=== PATIENT | female | born 1940 | race Caucasian/White ===

== ENCOUNTER → 2017-11-16 12:14 | Outpatient (CLI) | payer MEDICARE, OTHER ==
[2015-03-06 12:38] VITALS: BMI 34.8
[~2017-11-16 12:14] MED LIST: ASPIRIN81 MG PO; BENICAR20 MG PO; BUMETANIDE0.5 MG PO; DEXILANT60 MG PO; KLOR-CON 1010 MEQ PO; METOPROLOL TAR100 MG PO; PLAVIX75 MG PO; TUMS500 MG; VITAMIN D31000 UNIT PO; XANAX0.25 MG PO
== END | disposition home or self-care (01) ==
LOC: D.CT 12:14
DX: S09.90XA Unspecified injury of head, initial encounter (principal); X58.XXXA Exposure to other specified factors, initial encounter; Y93.89 Activity, other specified; Y92.89 Other specified places as the place of occurrence of the external cause; H53.9 Unspecified visual disturbance

== ENCOUNTER → 2019-04-18 08:32 | Outpatient (CLI) | payer MEDICARE, OTHER ==
[2015-03-06 12:38] VITALS: BMI 34.8
--- NOTE | ~2019-04-18 | ST ---
PATIENT:ZORAIDA DONOVAN MEDICAL RECORD: [id number] SEX: F LOCATION:[facility] ORDER #: ADMISSION DATE: 04/18/19 AGE OF PATIENT: 78 REFERRING PHYSICIAN: INTERPRETING PHYSICIAN: EILEEN JARVIS MD DATE OF SERVICE: 04/18/2019 INDICATIONS: Angina and coronary artery disease, shortness of breath, hypertension. She was exercised on standard Lexiscan protocol with 33 mCi of sestamibi injected at peak stress, 11 mCi used previously for rest images. FINDINGS: Gated SPECT reveals a preserved ejection fraction at 65% with good wall motion and thickening and brightening throughout all segments. SPECT IMAGING: Cardiolite was used as myocardial perfusion agent. There is reversibility anteriorly apically and laterally, this includes the basal, mid, apical, and anterior segments, the apex itself and apical lateral, mid lateral, and basal lateral segments. The degree of reversibility is moderate. The amount of myocardial involved is very large. OVERALL IMPRESSION: This is a high-risk abnormal nuclear stress test, large area of reversible ischemia anteriorly, apically, and laterally suggestive of multivessel coronary artery disease. We would proceed with coronary angiography as a followup study. TRANSINT:[id number] Voice Confirmation ID: [id number] DOCUMENT ID: [id number] EILEEN JARVIS MD CC: SAMUEL GUNTER [id number] DICTATION DATE: 04/18/19 1320 SCIENCE ANALYST: 04/19/19 0300 DEP CLI 04/18/19 [facility] [address] [place] [address]
== END | disposition home or self-care (01) ==
LOC: D.HCCARDIO 08:32
PROVIDERS: ATTEND Internal Medicine Interventional Cardiology
DX: I25.10 Atherosclerotic heart disease of native coronary artery without angina pectoris (principal)

== ENCOUNTER 2019-04-28 07:49 | Outpatient (CLI) | payer MEDICARE, OTHER ==
[~2019-04-28] VITALS: Ht 157.5 cm; Wt 93.2 kg
--- NOTE | ~2019-04-28 | HEMODYNAMI ---
PATIENT:ZORAIDA DONOVAN MEDICAL RECORD: [id number] : 44 LOCATION:[facility] ADMISSION DATE: 04/28/19 Generatedon:04/28/201912:09 Patient name: ZORAIDA DONOVAN Patient #: [id number] SSN: : 1940 Date of study: 04/28/2019 Page: Of Hemodynamic Procedure Report Patient Data Patient Demographics Procedure consent was obtained First Name: ZORAIDA Gender: Female Last Name: ZION : 1940 Middle Initial: SARAH Age: 78 year(s) Patient #: [id number] Race: Unknown Additional ID: [id number] Contact details Address: [place] [place] [address] State: [place] City: [place] Zip code: [address] Past Medical History Allergies Allergen Reaction Date Comments Reported Other allergy 03/03/2015 Codeine, Cordisone, Darvon, Dilaudid, Lincocin, Demerol, Aleve, Talwin, Ultram, Other allergy 04/28/2019 aleve,codeine, cortisone, darvon,demerol, dilaudid, diltiazem, imidapril, lincocin, phenacetin, talwin, ultram. Admission Admission Data Admission Date: 04/28/2019 Admission Time: 7:49 Weight (lbs.): 205.03 Weight (kg.): 93 Lab Results Lab Result Date: 04/28/2019 Lab Result Time: 0:00 Biochemistry Name Units Result Min Max BUN mg/dl 15 --(--*-)-- 7 18 Creatinine mg/dl 0.8 --(-*--)-- 0.6 1.3 CBC Name Units Result Min Max Hematocrit % 40.1 -*(----)-- 42 54 Hemoglobin g/dl 13.5 --(*---)-- 13.5 17.5 Procedure Procedure Types Cath Procedure Diagnostic Procedure LHC LHC w/Coronaries FFR/IVUS FFR Initial Procedure Description Procedure Date Procedure Date: 04/28/2019 Procedure Start Time: 11:58 Procedure End Time: 12:08 Procedure Staff Name Function Cristofer Knight MD Performing Physician Giovanni Salazar RT Monitor Irina Weiner RT Scrub Carina Vazquez RN Nurse Long Patel RN Argon Tester Procedure Data Cath Procedure Fluoroscopy Diagnostic fluoroscopy Total fluoroscopy Time: 3 time: 3 min min Diagnostic fluoroscopy Total fluoroscopy dose: 397 dose: 397 mGy mGy Contrast Material Contrast Material Type Amount (ml) Isovue 300 49 Entry Location Entry Primary Successful Side Size Upsize Upsize Entry Closure Cartwright ccessful Closure Location (Fr) 1 (Fr) 2 (Fr) Remarks Device Remarks Radial Right 6 Fr Mechanical artery Short Compression Estimated blood loss: 10 ml Diagnostic catheters Device Type Used For End Catheter Placement DIAGNOSTIC [place] 110cm 5 Procedure Fr catheter ([id number]) Procedure Complications No complications Procedure Medications Medication Administration Route Dosage Zofran I.V. 4 mg 0.9% NaCl I.V. 100 ml/hr Oxygen etCO2 Nasal cannula 2 l/min Lidocaine 2% added to field 20 Heparin Flush Bag added to field 2 bags (1000units/500ml NS) Radial Cocktail added to field 1 syringe (Verapamil 2mg/Nitro 400mcg/Heparin 1500units) Versed I.V. 2 mg Fentanyl I.V. 50 mcg Versed I.V. 2 mg Fentanyl I.V. 50 mcg Hemodynamics Rest HGB: 13.5 (g/dl) Heart Rate: 87 (bpm) Snapshots Pre Cath Intra NCS Post Cath Vital Signs Time Heart Resp SPO2 etCO2 NIBP (mmHg) Rhythm Pain Sedation Rate (ipm) (%) (mmHg) Status Level (bpm) 11:50:42 88 14 98 37 160/91(106) NSR 0 (11) 10(A) , No pain 11:55:06 83 18 97 40.3 145/80(115) NSR 0 (11) 10(A) , No pain 11:59:18 84 17 99 35.9 123/77(97) NSR 0 (11) 10(A) , No pain 12:03:36 76 19 98 14.9 121/67(99) NSR 0 (11) 10(A) , No pain 12:07:52 77 23 98 36.6 120/67(101) NSR 0 (11) 10(A) , No pain Medications Time Medication Route Dose Verified Delivered Reason Notes E ffectiveness by by 11:49:40 Zofran I.V. 4 mg Cristofer Carina for nausea nAtonia Vazquez RN 11:49:52 0.9% NaCl I.V. 100 Cristofer Carina used for ml/hr Antonia Vazquez children's aide 11:49:59 Oxygen etCO2 2 l/min Cristofer Carina used for Nasal Antonia Vazquez procedure cannula RN 11:50:04 Lidocaine 2% added 20ml Cristofer Cristofer for local to vial Antonia Knight MD anesthetic field 11:50:12 Heparin Flush added 2 bags Cristoferevan Rushrey used for Bag to Antonia Knight MD procedure (1000units/500ml field NS) 11:57:32 Versed I.V. 2 mg Cristofer Carina for Antonia Vazquez sedation RN 11:58:40 Fentanyl I.V. 50 mcg Cristofer Carina for Antonia Vazquez sedation RN 11:59:27 Radial Cocktail added 1 Cristofer Cristofer used for (Verapamil to syringe Antonia Knight MD procedure 2mg/Nitro field 400mcg/Heparin 1500units) 12:03:04 Versed I.V. 2 mg Cristofer Carina for Antonia Vazquez sedation RN 12:03:07 Fentanyl I.V. 50 mcg Cristofer Carina for Antonia Vazquez sedation interior decorator painting Log Time Note 11:34:55 Signed procedure consent form obtained from patient. 11:34:56 Diagnostic Cath status Elective 11:34:57 Time tracking: Regular hours (M-F 7:00 - 5:00) 11:35:02 Plan of Care:Hemodynamics will remain stable., Cardiac rhythm will remain stable., Comfort level will be maintained., Respiratory function will remain adequate., Patient/ family verbilizes understanding of procedure., Procedure tolerated without complication., Recovers from procedure without complications.. 11:35:24 Long Patel RN sent for patient. Start room use. 11:36:42 Patient Weight : 205.03 lbs 11:40:01 Lab Result : BUN 15 mg/dl 11:40:01 Lab Result : Hemoglobin 13.5 g/dl 11:40:01 Lab Result : Creatinine 0.8 mg/dl 11:40:01 Lab Result : Hematocrit 40.1 % 11:43:01 Patient received from Pre/Post Procedure Room to CCL 1 Alert and oriented. Tansferred to table in Supine position. 11:43:02 Warm blankets applied, and barron hugger turned on for patient comfort. 11:43:03 Correct patient and procedure confirmed by team. 11:43:03 ECG and BP/O2 sat monitors applied to patient. 11:49:21 Vital chart was started 11:49:40 Zofran 4 mg I.V. was administered by Carina Vazquez RN; for nausea; 11:49:52 0.9% NaCl 100 ml/hr I.V. was administered by Carina Vazquez RN; used for procedure; 11:49:59 Oxygen 2 l/min etCO2 Nasal cannula was administered by Carnia Vazquez RN; used for procedure; 11:50:04 Lidocaine 2% 20ml vial added to field was administered by Cristofer Knight MD; for local anesthetic; 11:50:12 Heparin Flush Bag (1000units/500ml NS) 2 bags added to field was administered by Cristofer Knight MD; used for procedure; 11:54:31 Baseline sample Acquired. 11:54:34 Rhythm: sinus rhythm 11:54:35 Full Disclosure recording started 11:54:50 H&P Date Dictated: 04/23/2019 Within 30 days and on chart., H&P Addendum completed by physician on day of procedure. (MUST COMPLETE FOR ALL OUTPATIENTS). 11:54:52 Pre-procedure instructions explained to patient. 11:54:52 Pre-op teaching completed and patient verbalized understanding. 11:55:11 Family in waiting room. 11:55:14 Patient NPO since Midnight. 11:56:19 Patient allergic to Other allergyaleve,codeine, cortisone, darvon,demerol, dilaudid, diltiazem, imidapril, lincocin, phenacetin, talwin, ultram. 11:56:21 Is the patient allergic to Iodine/contrast media? No. 11:56:22 Is patient on blood thinner?No 11:56:24 Patient diabetic? No. 11:56:28 Previous problem with sedation/anesthesia? Yes nausea 11:56:30 Snore? Yes 11:56:31 Sleep apnea? No 11:56:32 Deviated septum? No 11:56:32 Opens mouth fully? Yes 11:56:35 Sticks out tongue? Yes 11:56:37 Airway obstruction? No ? 11:56:40 Dentures? No ? 11:56:44 Pre procedure: right dorsailis pedis pulse 2+ Normal; easily identifiable; not easily obliterated 11:56:46 Modified Hector's test Ulnar > 7 seconds. 11:56:58 Patient pain scale 0/10 ?. 11:57:04 IV patent on arrival in left hand with 0.9% NaCl at [facility]. 11:57:06 Lab results completed and on chart. 11:57:09 Right Radial & Right Groin area was prepped with chlora-prep and draped in sterile fashion 11:57:10 Alarms reviewed by R. N. 11:57:10 Sharps counted by scrub and verified by R.N. 11:57:12 Use device set Radial Dx or PCI 11:57:13 ACIST Syringe (77154) opened to sterile field. 11:57:13 Medline Cath Pack ([id number]) opened to sterile field. 11:57:13 Bag Decanter (2002S) opened to sterile field. 11:57:14 ACIST Hand Control (43462) opened to sterile field. 11:57:14 ACIST Manifold (88590) opened to sterile field. 11:57:15 Tegaderm 4 x 4 (1626W) opened to sterile field. 11:57:15 MBrace Wrist Support ([id number]) opened to sterile field. 11:57:16 SHEATH 6FR Slender (801060) opened to sterile field. 11:57:17 DIAGNOSTIC WIRE .035 260cm J wire (792098) opened to sterile field. 11:57:32 Versed 2 mg I.V. was administered by Carina Vazquez RN; for sedation; 11:57:49 Physician arrived 11:57:49 --------ALL STOP TIME OUT------ 11:57:50 Final Timeout: patient, procedure, and site verified with staff and physician. All members of the team are in agreement. 11:57:52 Right Radial & Right Groin site verified by team. 11:57:56 Maximum allowable Isovue 300 dose 300ml. Physician notified. (300ml for normal creatinines. For patients with creatinine of 1.7 or higher multiply weight(kg) x 5 divided by creatinine.) 11:58:00 Fire Safety Assessment: A--An alcohol-based skin anteseptic being used preoperatively., C--Open oxygen or nitrous oxide is being used., D--An ESU, laser, or fiber-optic light is being used. 11:58:03 Physical assessment completed. ASA score P 2 - A patient with mild systemic disease as per Cristofer Knight MD. 11:58:06 Sedation plan: IV Moderate Sedation Medication:Versed, Fentanyl 11:58:09 Procedure started. 11:58:10 Zero performed for pressure channel P1 11:58:13 Zero performed for pressure channel P1 11:58:22 Local anesthetic to right radial artery with Lidocaine 2% by Cristofer Knight MD.INITIAL ACCESS ONLY 11:58:28 A 6 Fr Short sheath was inserted into the Right Radial artery 11:58:34 A DIAGNOSTIC [place] 110cm 5 Fr catheter (669112) was advanced over the wire and used for Procedure. 11:58:40 Fentanyl 50 mcg I.V. was administered by Carina Vazquez RN; for sedation; 11:59:27 Radial Cocktail (Verapamil 2mg/Nitro 400mcg/Heparin 1500units) 1 syringe added to field was administered by Cristofer Knight MD; used for procedure; 11:59:54 LV gram done using MOROCHO 11:59:56 Injector settings: Ml/sec: 5, Volume: 15, 11:59:57 LV hemodynamics recorded. 12:00:01 EF : 60 % 12:00:04 LCA angiography performed. 12:01:14 RCA angiography performed. 12:01:17 Catheter removed. 12:01:23 GUIDE 6FR XBLAD 3.5 SH catheter ([id number]) opened to sterile field. 12:01:33 Farson Verrata Plus pressure wire (67741I) opened to sterile field. 12:01:33 INFLATOR Merit BasixCompak (XG2290) opened to sterile field. 12:02:49 6 Fr xblad 3.5 sh guide catheter was inserted over the wire 12:03:04 Versed 2 mg I.V. was administered by Carina Vazquez RN; for sedation; 12:03:07 Fentanyl 50 mcg I.V. was administered by Carina Vazquez RN; for sedation; 12:03:18 FFR/IFR wire advanced. 12:04:06 Wire advanced across lesion. 12:04:43 MLAD lesion measured at 0.97 with IFR 12:05:45 MLAD lesion measured at 0.95 with IFR 12:06:00 Wire removed. 12:06:03 Guide catheter removed. 12:06:09 TR BAND Standard ([id number]) opened to sterile field. 12:06:20 Sheath removed intact; hemostasis achieved with Mechanical Compression to the Right Radial artery. 12:06:22 Procedure ended.(Physican Out) 12:06:50 Fluoroscopy time 03.00 minutes. 12::57 Fluoroscopy dose: 397 mGy 12:06:57 Flurop Dose total: 397 12:07:00 Contrast amount:Isovue 300 49ml. 12:07:02 Sharps counted by scrub and verified by R.N. 12:07:03 TR band inflated with 10cc of air. 12:07:04 Insertion/operative site no bleeding no hematoma. 12:07:10 Post right radial artery:stable, soft, clean and dry 12:07:11 Post Procedure Pulses reassessed and unchanged 12:07:13 Post-procedure physical assessment completed. ASA score P 2 - A patient with mild systemic disease as per Cristofer Knight MD. 12:07:14 Post procedure rhythm: unchanged. 12:07:17 Estimated blood loss: 10 ml 12:07:18 Post procedure instruction explained to patient.Patient verbalizes understanding. 12:07:19 Patient needs reinforcement of post procedure teaching. 12:07:30 Procedure type changed to Cath procedure, Diagnostic procedure, LHC, LHC w/Coronaries, FFR/IVUS, FFR Initial 12:07:50 Procedure and supply charges have been captured, reviewed, submitted and are correct. 12:07:53 Procedure Complication : No complications 12:07:55 Vital chart was stopped 12:07:55 See physician's report for complete and final results. 12:07:56 Report given to Pre/Post Procedure Room. 12:07:58 Patient transfered to Pre/Post Procedure Room with Stretcher. 12:08:00 Procedure ended. 12:08:00 Full Disclosure recording stopped 12:08:03 End room use (Document Last) Device Usage Item Name Manufacture Quantity Catalog Hospital Part Current Mini mal Lot# / Number Charge Number Stock Stock Serial# Code ACIST Acist 1 24191 132363 164884 212048 20 Syringe Medical (78691) Systems Inc Medline Medline 1 [id number] 635714 54256 672789 5 Cath Pack ([id number]) Bag Microtek 1 2001S 924142 34266 057366 5 Decanter Medical Inc. (2001S) ACIST Hand Acist 1 71202 010563 086515 683015 5 Control Medical (62874) Systems Inc ACIST Acist 1 58619 473873 009245 814287 5 Manifold Medical (96842) Systems Inc Tegaderm 4 3M 1 1626W 472674 421008 460496 5 x 4 (1626W) MBrace Advanced 1 140-0250-00 814459 00420 151353 5 Wrist Vascular Support Dynamics ([id number]) SHEATH 6FR Terumo 1 [id number] 804821 750161 862469 5 Slender (80-1060) DIAGNOSTIC St Los 1 302773 289286 747850 069026 30 WIRE .035 260cm J wire (465250) DIAGNOSTIC Terumo 1 405013 977113 261492 944034 5 [place] 110cm 5 Fr catheter (301249) Farson Farson 1 10894X 681766 [id number] 314271 5 Verrata Plus pressure wire (68786F) INFLATOR Merit 1 RT5293 184657 328972 707295 15 [facility] Medical BasixCompak (RP4178) GUIDE 6FR Cardinal 1 [id number] 281336 484582 620544 3 XBLAD 3.5 [facility] catheter (79618161) TR BAND Terumo 1 [id number] 054057 190403 890893 40 Standard ([id number]) Signature Audit [place] Stage Time Signature Unsigned Intra-Procedure 04/28/2019 Giovanni Salazar 12:09:10 PM RT(R) Signatures Monitor : Giovanni Salazar RT Signature : Date : Time : [facility] [address] [place] [address]
[2019-04-28 08:41] VITALS: BP 175/88; Ht 157.5 cm; Wt 93.2 kg
[2019-04-28 08:59] LABS: BASOPHILS 0.4 % (0-2); EOSINOPHILS 5.5 % (0-7); HEMATOCRIT 40.1 % (36.0-48.0); HEMOGLOBIN 13.5 g/dL (12-16); LYMPHOCYTES 17.6 % (15-50); MCH 30.1 pg (26.0-34.0); MCHC 33.7 g/dL (31.0-37.0); MCV 89.5 fL (80.0-100.0); MEAN PLATELET VOLUME 10.2 fL (7.4-10.4); MONOCYTES 8.5 % (2-11); PLATELET COUNT 237 10x3/uL (130-400); RBC 4.48 10x6/uL (4.00-5.40); RDW 13.5 % (11.5-14.5); WBC 5.3 10x3/uL (4.8-10.8)
[2019-04-28 09:01] LABS: ANION GAP 14.8 mmol/L (8-16); CALCIUM 8.8 mg/dL (8.5-10.1); CARBON DIOXIDE 25.2 mmol/L (21.0-32.0); CREATININE - SERUM 0.8 mg/dL (0.6-1.3)
[2019-04-28] MEDS ORDERED: XANAX0.5 MG PO (09:02)
--- NOTE | 2019-04-28 12:23 | NUR ---
RECEIVED PT FROM THE SOUND TECHNICIAN. PT IS ALERT, DENIES ANY C/O PAIN OR NAUSEA. TR BAND IS CDI TO RIGHT WRIST, FINGERS WARM AND CAP REFILL IS BRISK. NSR, RATE IS 72, BP IS 130/68. RESP WITH EASE ON ROOM AIR. SISTER AT BEDSIDE. CALL LIGHT IN REACH.
--- NOTE | 2019-04-28 12:32 | NUR ---
PT ALERT, DENIES ANY C/O. SANDWICH AND PO FLUIDS SERVED. VSS, CALL LIGHT IN REACH.
--- NOTE | 2019-04-28 12:48 | NUR ---
TR BAND IS CDI, FINGERS WARM AND CAP REFILL IS BRISK. VSS, PT SITTING UP IN BED, EATING SANDWICH AND DENIES NEEDS AT THIS TIME.
--- NOTE | 2019-04-28 13:12 | NUR ---
PT DENIES ANY C/O OR NEEDS AT THIS TIME. TR BAND IS CDI, FINGERS WARM AND CAP REFILL IS BRISK. VSS.
--- NOTE | 2019-04-28 13:19 | NUR ---
3 CC OF AIR WEANED FROM TR BAND WITH NO BLEEDING NOTED. FINGERS WARM AND CAP REFILL IS BRISK.
--- NOTE | 2019-04-28 13:32 | NUR ---
3 CC OF AIR WEANED FROM TR BAND WITH NO BLEEDING NOTED. FINGERS WARM AND CAP REFILL IS BRISK.
--- NOTE | 2019-04-28 13:49 | NUR ---
3 CC OF AIR WEANED FROM TR BAND WITH NO BLEEDING NOTED. FINGERS WARM AND CAP REFILL IS BRISK.
--- NOTE | 2019-04-28 14:13 | NUR ---
1400 ALL REMAINING AIR WEANED FROM TR ABND WITH NO BLEEDING NOTED. BAND REMOVED AND 2X2, TEGADERM PLACED TO SITE. FINGERS WARM AND PULSE PALPABLE. PT DENIES ANY NV DEFICIT TO HAND. DC INSTRUCTIONS REVIEWED WITH PT AND SISTER WHO VERBALIZE UNDERSTANDING. PT DRESSING FOR DC WITH ASSIST.
--- NOTE | 2019-04-28 14:16 | NUR ---
PT DRESSED FOR DC, DRESSING REMAINS CDI TO RIGHT WRIST, WRIST IMMOBILIZER IN PLACE. PT DENIES ANY C/O. PT ESCORTED TO PRIVATE AUTO VIA WC BY NURSE WITH SISTER DRIVING HER HOME.
--- NOTE | 2019-04-30 10:00 | OP ---
PATIENT NAME: ZORAIDA DONOVAN MEDICAL RECORD: [id number] :42 LOCATION:[facility] ADMISSION DATE: SURGEON: EILEEN JARVIS MD DATE OF OPERATION: 04/28/2019 PROCEDURES: 1. IFR, LAD. 2. Left heart catheterization. 3. Selective coronary angiography. 4. Left ventriculogram. INDICATION: Angina, coronary artery disease, shortness of breath, dyspnea on exertion, abnormal nuclear stress test, anterolateral ischemia. DESCRIPTION OF PROCEDURE: After informed consent was obtained with detailed description of risks and benefits as well as alternative therapies, the patient elected to proceed with angiogram and heart catheterization. The right radial area was prepped and draped in normal sterile fashion. The right radial artery was cannulated via modified Seldinger technique with placement of 6-Romansh sheath. All catheters were exchanged through this sheath. FINDINGS: Left ventriculogram performed in standard 30-degree MOROCHO view reveals good cardiac wall motion throughout all segments. Overall ejection fraction is estimated at 50%. SELECTIVE CORONARY ANGIOGRAPHY: 1. Left main shows no significant angiographic disease. 2. Left anterior descending has previously placed stent. This is widely patent. There is a questionable area of stenosis in the mid vessel; however, IFR is normal. 3. Left circumflex has moderate irregularities, but no flow-limiting stenosis. 4. Right coronary has moderate irregularities, but no flow-limiting stenosis. OVERALL IMPRESSION: Minimal coronary artery disease present. No flow-limiting stenosis. Continue medical management for coronary artery disease and cardiac risk factors. TRANSINT:[id number] Voice Confirmation ID: [id number] DOCUMENT ID: [id number] EILEEN JARVIS MD at 1000 CC: [id number] DICTATION DATE: 04/28/19 1208 PAPER ROLLER: 04/28/19 1339 DEP CLI 04/28/19 [id number] [place] [address]
== END 2019-04-28 14:15 | disposition home or self-care (01) ==
LOC: D.CATH 07:49
PROVIDERS: ATTEND Internal Medicine Interventional Cardiology
DX: I25.119 Atherosclerotic heart disease of native coronary artery with unspecified angina pectoris (principal); R94.30 Abnormal result of cardiovascular function study, unspecified; Z01.812 Encounter for preprocedural laboratory examination; Z95.5 Presence of coronary angioplasty implant and graft

== ENCOUNTER 2019-12-05 21:39 | Emergency (ER) | payer MEDICARE, OTHER ==
[~2019-12-05] VITALS: Ht 157.5 cm; Wt 87.3 kg
[~2019-12-05 21:39] MED LIST changes: +XANAX0.5 MG PO
[2019-12-05 21:49] VITALS: Ht 157.5 cm; Wt 87.3 kg
[2019-12-05 22:02] LABS: BASOPHILS 0.3 % (0-2); EOSINOPHILS 4.3 % (0-7); HEMATOCRIT 40.4 % (36.0-48.0); HEMOGLOBIN 13.1 g/dL (12-16); IMMATURE GRANULOCYTES 0.1 % (0-5); LYMPHOCYTES 20.4 % (15-50); MCH 29.4 pg (26.0-34.0); MCHC 32.4 g/dL (31.0-37.0); MCV 90.6 fL (80.0-100.0); MEAN PLATELET VOLUME 9.7 fL (7.4-10.4); MONOCYTES 10.7 % (2-11); NEUTROPHILS 64.2 % (40-80); RBC 4.46 10x6/uL (4.00-5.40); RDW 13.8 % (11.5-14.5); WBC 7.2 10x3/uL (4.8-10.8)
[2019-12-05 22:03] LABS: PLATELET COUNT 285 10x3/uL (130-400)
[2019-12-05 22:13] LABS: CALC OSMOLALITY 285 mosm/kg (275-300); CALCIUM 8.6 mg/dL (8.5-10.1); CARBON DIOXIDE 29.3 mmol/L (21.0-32.0); CHLORIDE - SERUM 104 mmol/L (98-107); CREATININE - SERUM 0.8 mg/dL (0.6-1.3); GLUCOSE 116 mg/dL (74-106); POTASSIUM - SERUM 3.8 mmol/L (3.5-5.1); SODIUM 142 mmol/L (136-145); UREA NITROGEN 18 mg/dL (7-18); eGFR NON AFRICAN AMERICAN 74 mL/min (90-120)
[2019-12-05 22:14] LABS: APTT 30.4 SECONDS (22.8-39.4); INR 0.88 (0.85-1.17)
[2019-12-05 22:29] LABS: ALBUMIN 3.2 g/dL (3.4-5.0); ALKALINE PHOSPHATASE 110 U/L (30-120); ALT (SGPT) 10 U/L (10-68); BILIRUBIN - TOTAL 0.26 mg/dL (0.2-1.3); CKMB 0.7 U/L (0.0-3.6); CREATINE KINASE 63 UL (21-215); MAGNESIUM - SERUM 2.1 mg/dL (1.8-2.4); PROTEIN - SERUM 7.6 g/dL (6.4-8.2); TROPONIN-I < 0.017 ng/mL (0.000-0.060)
[2019-12-05 22:42] LABS: THYROID STIMULATING HORMONE 3.37 uIU/mL (0.36-3.74)
[2019-12-05 23:00] VITALS: BP 181/86
== END 2019-12-05 23:00 | disposition home or self-care (01) ==
LOC: D.ER 21:39
PROVIDERS: Family Medicine
DX: R00.2 Palpitations (principal); Z86.79 Personal history of other diseases of the circulatory system

== ENCOUNTER 2019-12-26 09:23 | Observation (INO) | payer MEDICARE, OTHER ==
[~2019-12-26] VITALS: Ht 157.5 cm; Wt 87.3 kg
[2019-12-26 09:46] LABS: BASOPHILS 0.5 % (0-2); EOSINOPHILS 2.6 % (0-7); HEMATOCRIT 43.2 % (36.0-48.0); IMMATURE GRANULOCYTES 0.3 % (0-5); LYMPHOCYTES 13.9 % (15-50); MCH 29.1 pg (26.0-34.0); MCHC 32.4 g/dL (31.0-37.0); MCV 89.8 fL (80.0-100.0); MEAN PLATELET VOLUME 9.7 fL (7.4-10.4); MONOCYTES 7.7 % (2-11); PLATELET COUNT 302 10x3/uL (130-400); RBC 4.81 10x6/uL (4.00-5.40); RDW 13.7 % (11.5-14.5); WBC 7.8 10x3/uL (4.8-10.8)
[2019-12-26 09:55] LABS: APTT 27.3 SECONDS (22.8-39.4); CALC OSMOLALITY 281 mosm/kg (275-300); CALCIUM 9.1 mg/dL (8.5-10.1); CHLORIDE - SERUM 104 mmol/L (98-107); CREATININE - SERUM 0.9 mg/dL (0.6-1.3); GLUCOSE 108 mg/dL (74-106); INR 0.99 (0.85-1.17); POTASSIUM - SERUM 3.8 mmol/L (3.5-5.1); SODIUM 141 mmol/L (136-145); UREA NITROGEN 13 mg/dL (7-18); eGFR NON AFRICAN AMERICAN 64 mL/min (90-120)
[2019-12-26 10:09] LABS: D-DIMER-QUANTITATIVE 5.38 ug/mLFEU (0.20-0.54)
[2019-12-26 10:12] LABS: ALBUMIN 3.3 g/dL (3.4-5.0); ALKALINE PHOSPHATASE 108 U/L (30-120); ALT (SGPT) 10 U/L (10-68); BILIRUBIN - TOTAL 0.46 mg/dL (0.2-1.3); CKMB 0.8 U/L (0.0-3.6); CREATINE KINASE 45 UL (21-215); PRO BNP 187 pg/mL (0-450); PROTEIN - SERUM 7.9 g/dL (6.4-8.2)
[2019-12-26 10:15] LABS: TROPONIN-I < 0.017 ng/mL (0.000-0.060)
--- NOTE | 2019-12-26 10:16 | NUR ---
LAB CALLED WITH CRITICAL D-DIMER LEVEL 5.38
[2019-12-26 12:45] VITALS: BP 156/83
--- NOTE | 2019-12-26 13:19 | NUR ---
TRANSFER FROM ER BY W/C. ROSIOINTED TO ROOM. CALL LIGHT IN REACH. WILL CONT. PLAN OF CARE.
[2019-12-26 13:49] VITALS: BP 162/82; BMI 35.2
[2019-12-26 16:00] VITALS: BP 162/82
[2019-12-26 16:28] LABS: CKMB 0.9 U/L (0.0-3.6); CREATINE KINASE 39 UL (21-215)
[2019-12-26 16:29] LABS: TROPONIN-I < 0.017 ng/mL (0.000-0.060)
--- NOTE | 2019-12-26 17:21 | NUR ---
STATES SHE FEELS DIZZY AFTER SITTING UP IN BED. B/P 146/84, PULSE 83, 02 SAT 96%. WILL CONT. TO MONITOR.
[2019-12-26 17:49] VITALS: Ht 157.5 cm; Wt 87.3 kg
--- NOTE | 2019-12-26 20:04 | NUR ---
INITIAL ROUNDS COMPLETED AT 1915 HRS. PT DENIED ANY DICOMFORT. ASSESSMENT COMPLETED AT 1935 HRS. SR PER CM HR 88. ALERT AND ORIENTED TO PERSON,PLACE AND TIME. QUARLES. IV TO RAC AND R AHND SL. LUNGS ESENTIALLLY CTA. PT STATES THAT IV TO R HAD IS PAINFUL. DC'D WITH CATHETER INTACT. SPOUSE AT BEDSIDE. SR UP X2,CALL LIGHT WITHIN REACH.
[2019-12-26 20:30] VITALS: BP 137/79
[2019-12-26 21:04] LABS: CKMB 0.3 U/L (0.0-3.6); CREATINE KINASE 31 UL (21-215)
[2019-12-26 21:10] LABS: TROPONIN-I < 0.017 ng/mL (0.000-0.060)
--- NOTE | 2019-12-26 21:57 | NUR ---
PM MED GIVEN. NO DISTRESS NOTED. VSS. SR UP X2, CALL LIGHT WITHIN REACH.
--- NOTE | 2019-12-27 00:07 | NUR ---
PT RESTING WITH EYES CLOSED. RESP EVEN AND REGULAR. SR UP X1, CALL LIGHT WITHIN REACH.
[2019-12-27 00:30] VITALS: BP 164/79
--- NOTE | 2019-12-27 02:13 | NUR ---
PT RESTING WITH EYES CLOSED. RESP EVEN AND REGULAR. SR UP X2, CALL LIGHT WITHIN REACH.
[2019-12-27 03:37] LABS: BASOPHILS 0.4 % (0-2); HEMATOCRIT 38.7 % (36.0-48.0); HEMOGLOBIN 12.5 g/dL (12-16); IMMATURE GRANULOCYTES 0.4 % (0-5); LYMPHOCYTES 23.8 % (15-50); MCH 28.9 pg (26.0-34.0); MCHC 32.3 g/dL (31.0-37.0); MCV 89.4 fL (80.0-100.0); MEAN PLATELET VOLUME 9.4 fL (7.4-10.4); MONOCYTES 8.5 % (2-11); NEUTROPHILS 62.9 % (40-80); PLATELET COUNT 277 10x3/uL (130-400); RBC 4.33 10x6/uL (4.00-5.40); RDW 13.9 % (11.5-14.5)
[2019-12-27 03:38] LABS: WBC 5.5 10x3/uL (4.8-10.8)
[2019-12-27 03:59] LABS: ALBUMIN 2.8 g/dL (3.4-5.0); ALKALINE PHOSPHATASE 90 U/L (30-120); BILIRUBIN - TOTAL 0.57 mg/dL (0.2-1.3); CALC OSMOLALITY 279 mosm/kg (275-300); CALCIUM 8.6 mg/dL (8.5-10.1); CARBON DIOXIDE 26.7 mmol/L (21.0-32.0); CHLORIDE - SERUM 104 mmol/L (98-107); CKMB 0.2 U/L (0.0-3.6); CREATINE KINASE 30 UL (21-215); CREATININE - SERUM 0.7 mg/dL (0.6-1.3); GLUCOSE 105 mg/dL (74-106); POTASSIUM - SERUM 3.7 mmol/L (3.5-5.1); PROTEIN - SERUM 6.8 g/dL (6.4-8.2); SODIUM 140 mmol/L (136-145); UREA NITROGEN 16 mg/dL (7-18); eGFR NON AFRICAN AMERICAN 86 mL/min (90-120)
[2019-12-27 04:00] LABS: ALT (SGPT) 6 U/L (10-68); TROPONIN-I < 0.017 ng/mL (0.000-0.060)
--- NOTE | 2019-12-27 04:26 | NUR ---
SCHEDULED EKG DONE. PT DENIES ANY DISCOMFORT. SR UP X1, CALL LIGHT WITHIN REACH.
[2019-12-27 04:30] VITALS: BP 142/75
--- NOTE | 2019-12-27 06:20 | NUR ---
VSS THROUGHOUT NIGHT. SR PER CM. PT DENIED ANY DISCOMFORT. NEEDS MET; WILL CONTINUE TO MONITOR.
[2019-12-27 08:00] VITALS: BP 142/77
[2019-12-27 16:00] VITALS: BP 144/74
--- NOTE | 2019-12-27 20:00 | NUR ---
REPORT RECIEVED AND INITIAL ROUNDS COMPLETED. SEE SHIFT ASSESSMENT. NO DISTRESS. RESTING IN BED.
[2019-12-27 21:30] VITALS: BP 169/79
[2019-12-28 00:30] VITALS: BP 144/82
--- NOTE | 2019-12-28 04:00 | NUR ---
PT RESTING IN BED. NONLABORED RESPIRATIONS. SON AT BEDSIDE. CPOC.
[2019-12-28 04:30] VITALS: BP 142/83
[2019-12-28 08:00] VITALS: BP 158/89
--- NOTE | 2019-12-28 13:00 | NUR ---
REVIEWED DISCHARGE INSTRUCTIONS WITH PT STATES UNDERSTANDING COPY GIVEN DCD SALINE LOCK TO RAC WITH IV CATHETER INTACT SITE FREE OF REDNESS OR EDEMA PT DISCHARGED HOME LEFT UNIT VIA W/C IN STABLE CONDITIION WITH ALL PERSONAL BELONGINGS
--- NOTE | 2019-12-29 11:54 | CN ---
PATIENT NAME:ZORAIDA COHEN MEDICAL RECORD: [id number] : 44 LOCATION:D.M2 D.2114 ADMIT DATE: 12/26/19 ACCOUNT: [id number] CONSULTING PHYSICIAN: EILEEN JARVIS MD REFERRING PHYSICIAN: SAMUEL GUNTER MD DATE OF CONSULTATION: 12/28/2019 DIAGNOSES: 1. Near syncope. 2. Shortness of breath, dyspnea on exertion. 3. Coronary artery disease. 4. Previous cardiac stenting. 5. Hypertension. 6. Hyperlipidemia. HISTORY OF PRESENT ILLNESS: Mrs. Cohen had an episode Sunday morning of shortness of breath, it happened when she was in the shower, she had no chest pressure with this, she became very short of breath, she felt like she was about to pass out. She is admitted. Her troponins are normal. She has had no dysrhythmias. Her EKG is normal. She does have a history of coronary artery disease, previous cardiac stenting; however, catheterization last May was with no recurrent disease. No intervention was needed. She has not had any chest pain or chest pressure. She has had no further episodes of shortness of breath that she had Sunday. PHYSICAL EXAMINATION: CONSTITUTIONAL/GENERAL APPEARANCE: Well nourished, well developed, appears stated age. EYES: Lids and conjunctivae noninjected. No discharge. No pallor. ENT: Lips within normal limit. No cyanosis. No pallor. NECK: Carotid arteries, bilateral normal upstroke. No bruits. No thrills. No jugular venous pressure or distention. CERVICAL LYMPH NODES: Nontender. Nonenlarged. THYROID: Not enlarged. No nodules. CARDIOVASCULAR: Precordial exam, nondisplaced. No heaves or pericardial thrills. Rate and rhythm, regular. Heart sounds, normal S1, normal S2. No S3, no gallop, no rub. Systolic murmur, not heard. Diastolic murmur, not heard. RESPIRATORY: Respiratory effort, unlabored. Normal curvature. No thoracic deformity. No chest wall tenderness. Percussion, resonant. Auscultation, clear. No wheezes, no rales, no rhonchi. ABDOMEN: Soft, nondistended, nontender. No abdominal pain, no vomiting and normal appetite. MUSCULOSKELETAL: No joint tenderness, normal gait, normal tone. SKIN: Warm and dry. REVIEW OF SYSTEMS: The patient reports easy bruising but reports no swollen glands. The patient reports no fever, no night sweats, no significant weight gain, no significant weight loss. No significant exercise tolerance. The patient reports no dry eyes, no irritation, no vision change. Patient reports no difficulty hearing and no ear pain. Patient reports no frequent nose bleeds or nose and sinus problems. Patient reports on arm pain on exertion. No shortness of breath while lying down. No history of heart murmur. Patient reports no cough, no wheezing or coughing up blood. Patient reports no abdominal pain, no vomiting. Normal appetite. No diarrhea and not vomiting blood. No nausea and no constipation. Patient reports no incontinence. No CONSULT REPORT [id number] ZORAIDA COHEN difficulty urinating. No hematuria. No increased frequency. Patient reports no muscle aches. No weakness, no arthralgias, no back pain. No swelling of the extremities. Patient reports no abnormal mole, no jaundice, no rashes. Reports no loss of consciousness. No weakness and no numbness. No seizures, dizziness, or headaches. The patient reports no depression, no sleep disturbance, feeling safe in a relationship and no alcohol abuse. Patient reports on fatigue. Reports no runny nose or sinus pressure. No itching, no hives, and no frequent sneezing. OVERALL IMPRESSION: Episodic shortness of breath, not sure that this is cardiac in nature. With all her studies being normal and echo being normal, no other cardiac workup or treatment is necessary at this time. TRANSINT:[id number] Voice Confirmation ID: [id number] DOCUMENT ID: [id number] EILEEN JARVIS MD at 1154 CC: [id number] DICTATION DATE: 12/28/19 1040 SOAKER HELPER: 12/28/19 1131 DIS IN 12/28/19 [id number] [place] [address]
== END 2019-12-28 13:00 | disposition home or self-care (01) ==
LOC: D.ER 09:23 → D.M2 12:57 → OBSVTIME 12:57 → D.M2 12-28 13:00
PROVIDERS: Family Medicine; ADMIT Family Medicine; ATTEND Family Medicine
DX: I27.20 Pulmonary hypertension, unspecified (principal); R06.00 Dyspnea, unspecified; R55 Syncope and collapse; I10 Essential (primary) hypertension; R06.02 Shortness of breath; R00.2 Palpitations; K21.9 Gastro-esophageal reflux disease without esophagitis

== ENCOUNTER → 2021-03-09 16:03 | Outpatient (CLI) | payer MEDICARE, OTHER ==
[2019-12-26 17:49] VITALS: BMI 35.2
== END | disposition home or self-care (01) ==
LOC: D.LAB 16:03
PROVIDERS: ATTEND Family Medicine
DX: R19.7 Diarrhea, unspecified (principal)